=== PATIENT | female | born 1955 | race Asian ===

== ENCOUNTER 2021-02-01 09:11 | Outpatient (CLI) | payer OTHER | END 2021-02-01 19:51 | disposition home or self-care (01) | LOC: INF 09:11 | PROVIDERS: ATTEND Internal Medicine | DX: Z23 Encounter for immunization (principal) | CPT/HCPCS: 96372 ==

== ENCOUNTER 2021-02-21 09:16 | Outpatient (CLI) | payer OTHER | END 2021-02-21 20:04 | disposition home or self-care (01) | LOC: INF | PROVIDERS: ATTEND Internal Medicine | DX: Z23 Encounter for immunization (principal) | CPT/HCPCS: 96372 ==